=== PATIENT | female | born 1990 | race Caucasian/White ===

== ENCOUNTER 2021-05-20 14:37 | Inpatient (IN) | payer OTHER ==
[2021-05-20 18:06] VITALS: BMI 24.1
[2021-05-20] MEDS ORDERED: MAG HYDROX/AL HYDROX/SIMETH 30 ML UNIT-DOSE CUP PO PRN (18:06)
[2021-05-20] MEDS ORDERED: MAGNESIUM HYDROX 2400MG/30ML ORAL SUSPENSION 30 ML CUP PO PRN (18:06)
[2021-05-20] MEDS ORDERED: BISMUTH SUBSALICYLATE 524 MG/30 ML PO PRN (18:06)
[2021-05-20] MEDS ORDERED: ONDANSETRON *ODT* 4 MG TABLET SL PRN (18:06)
[2021-05-20] MEDS ORDERED: MENTHOL/PHENOL 1 EACH UD MM PRN (18:06)
[2021-05-20] MEDS ORDERED: MAGNESIUM CITRATE 300 ML BOTTLE PO PRN (18:06)
[2021-05-20] MEDS ORDERED: METHOCARBAMOL 500 MG TABLET PO PRN (18:06)
[2021-05-20] MEDS ORDERED: IBUPROFEN 400 MG TABLET (FP) PO PRN (18:06)
[2021-05-20] MEDS ORDERED: ACETAMINOPHEN 325 MG TABLET (FP) PO PRN ×2 (18:06)
[2021-05-20] MEDS: PRENATAL VITAMINS W/ FOLIC ACID TABLET (FP) PO SCH (20:14)
[2021-05-20] MEDS ORDERED: traZODone HCL 50 MG TABLET (FP) PO ONE (22:00)
[2021-05-20] MEDS ORDERED: MELATONIN 5 MG TABLETS PO SCH (22:00)
[2021-05-20] MEDS: hydrOXYzine PAMOATE 25 MG CAPSULE (FP) PO SCH (23:00)
[2021-05-20] MEDS: THIAMINE HCL 100 MG TABLET (FP) PO SCH (23:00)
[2021-05-21] MEDS: hydrOXYzine PAMOATE 25 MG CAPSULE (FP) PO SCH ×2 (07:12→10:07)
[2021-05-21] MEDS ORDERED: diazePAM 5 MG TABLET PO PRN (09:44)
[2021-05-21] MEDS: PRENATAL VITAMINS W/ FOLIC ACID TABLET (FP) PO SCH (10:06)
[2021-05-21] MEDS: diazePAM 5 MG TABLET PO SCH ×3 (10:09→22:22)
[2021-05-21] MEDS ORDERED: diazePAM 5 MG TABLET PO SCH (11:00)
[2021-05-21] MEDS ORDERED: hydrOXYzine PAMOATE 25 MG CAPSULE (FP) PO PRN ×2 (11:08→16:09)
[2021-05-21] MEDS: NICOTINE 10 MG CARTRIDGE (INHALER) IH PRN ×2 (11:10→22:24)
[2021-05-21] MEDS ORDERED: methaDONE HCL 10 MG TABLET PO SCH (11:15)
[2021-05-21] MEDS ORDERED: methaDONE HCL 10 MG TABLET ONE (11:43)
[2021-05-21] MEDS ORDERED: methaDONE HCL 40 MG DISPERSABLE TABLET ONE (11:44)
[2021-05-21 11:54] LABS: HEMATOCRIT 33.5 % (32.4-45.2); HEMOGLOBIN 11.1 GM/dL (10.7-15.3); MCH 29.1 pg (25.7-33.7); MEAN CELL VOLUME 88.3 fl (80-96); PLATELET COUNT 183 10^3/uL (134-434); RDW 16.6 % (11.6-15.6); WHITE BLOOD COUNT 5.2 K/mm3 (4.0-10.0)
[2021-05-21 12:28] LABS: ALBUMIN 2.8 g/dl (3.4-5.0)
[2021-05-21 12:29] LABS: CALCIUM 7.9 mg/dL (8.5-10.1)
[2021-05-21 12:30] LABS: BILIRUBIN,TOTAL 0.2 mg/dL (0.2-1); BLOOD UREA NITROGEN 11.9 mg/dL (7-18); TOT PROT 5.9 g/dl (6.4-8.2)
[2021-05-21 12:32] LABS: CREATININE 0.8 mg/dL (0.55-1.3)
[2021-05-21 12:55] LABS: HIV INTERPRETATION NEGATIVE (NEGATIVE)
[2021-05-21] MEDS ORDERED: FLU VACC QS2021-22(6MOS UP)/PF 60 MCG/0.5 ML SYRINGE IM ONE (13:00)
[2021-05-21] MEDS: traZODone HCL 50 MG TABLET (FP) PO SCH (22:21)
[2021-05-21] MEDS: THIAMINE HCL 100 MG TABLET (FP) PO SCH (22:22)
[2021-05-22] MEDS ORDERED: methaDONE HCL 10 MG TABLET ONE (04:11)
[2021-05-22] MEDS ORDERED: methaDONE HCL 40 MG DISPERSABLE TABLET ONE (04:12)
[2021-05-22] MEDS: diazePAM 5 MG TABLET PO SCH ×4 (06:45→22:31)
[2021-05-22] MEDS: PRENATAL VITAMINS W/ FOLIC ACID TABLET (FP) PO SCH (10:23)
[2021-05-22] MEDS: SERTRALINE HCL 50 MG TABLET (FP) PO SCH (10:23)
[2021-05-22] MEDS: hydrOXYzine PAMOATE 25 MG CAPSULE (FP) PO PRN (10:24)
[2021-05-22] MEDS: NICOTINE 10 MG CARTRIDGE (INHALER) IH PRN (19:51)
[2021-05-22] MEDS: traZODone HCL 50 MG TABLET (FP) PO SCH (22:32)
[2021-05-22] MEDS: THIAMINE HCL 100 MG TABLET (FP) PO SCH (22:32)
[2021-05-23] MEDS ORDERED: methaDONE HCL 10 MG TABLET ONE (04:08)
[2021-05-23] MEDS ORDERED: methaDONE HCL 40 MG DISPERSABLE TABLET ONE (04:08)
[2021-05-23] MEDS ORDERED: diazePAM 5 MG TABLET PO SCH (06:00)
[2021-05-23] MEDS: diazePAM 5 MG TABLET PO SCH ×3 (06:31→22:43)
[2021-05-23] MEDS: SERTRALINE HCL 50 MG TABLET (FP) PO SCH (10:27)
[2021-05-23] MEDS: PRENATAL VITAMINS W/ FOLIC ACID TABLET (FP) PO SCH (10:27)
[2021-05-23] MEDS: traZODone HCL 50 MG TABLET (FP) PO SCH (22:42)
[2021-05-23] MEDS: THIAMINE HCL 100 MG TABLET (FP) PO SCH (22:43)
[2021-05-23] MEDS: METHOCARBAMOL 750 MG TABLET PO PRN (22:44)
[2021-05-24] MEDS ORDERED: methaDONE HCL 40 MG DISPERSABLE TABLET ONE (04:03)
[2021-05-24] MEDS ORDERED: methaDONE HCL 10 MG TABLET ONE (04:03)
[2021-05-24] MEDS: diazePAM 5 MG TABLET PO SCH ×2 (06:25→17:27)
[2021-05-24] MEDS: SERTRALINE HCL 50 MG TABLET (FP) PO SCH (10:11)
[2021-05-24] MEDS: PRENATAL VITAMINS W/ FOLIC ACID TABLET (FP) PO SCH (10:11)
[2021-05-24] MEDS: hydrOXYzine PAMOATE 25 MG CAPSULE (FP) PO PRN ×3 (10:15→22:17)
[2021-05-24] MEDS: METHOCARBAMOL 750 MG TABLET PO PRN ×2 (10:15→19:22)
[2021-05-24] MEDS: NICOTINE 10 MG CARTRIDGE (INHALER) IH PRN ×2 (10:15→18:37)
[2021-05-24] MEDS: THIAMINE HCL 100 MG TABLET (FP) PO SCH (22:17)
[2021-05-24] MEDS: traZODone HCL 50 MG TABLET (FP) PO SCH (22:18)
[2021-05-25] MEDS ORDERED: methaDONE HCL 10 MG TABLET ONE (04:04)
[2021-05-25] MEDS ORDERED: methaDONE HCL 40 MG DISPERSABLE TABLET ONE (04:04)
[2021-05-25 05:58] VITALS: BP 81/48; PULSE 91; TEMP 96.6
[2021-05-25] MEDS ORDERED: diazePAM 5 MG TABLET PO ONE (06:00)
[2021-05-25] MEDS: PRENATAL VITAMINS W/ FOLIC ACID TABLET (FP) PO SCH (11:50)
[2021-05-25] MEDS: SERTRALINE HCL 50 MG TABLET (FP) PO SCH (11:51)
== END 2021-05-25 09:28 | disposition home or self-care (01) | DRG 773 ==
LOC: YASAS 14:37 → UNDOADMIN 17:58 → Y3N 17:58
PROVIDERS: ADMIT Allergy & Immunology; ATTEND Allergy & Immunology
PROC: HZ2ZZZZ Detoxification Services for Substance Abuse Treatment (ICD-10-PCS; principal; 2021-05-20)
DX: F13.230 Sedative, hypnotic or anxiolytic dependence with withdrawal, uncomplicated (principal); F10.230 Alcohol dependence with withdrawal, uncomplicated; F11.20 Opioid dependence, uncomplicated; F14.20 Cocaine dependence, uncomplicated; F12.10 Cannabis abuse, uncomplicated; F17.210 Nicotine dependence, cigarettes, uncomplicated; F90.9 Attention-deficit hyperactivity disorder, unspecified type; F31.9 Bipolar disorder, unspecified
CPT/HCPCS: 36415; 80053; 81025; 85027; 86780; 87389; 90686; C9803; G0008; U0003; U0005